=== PATIENT | female | born 1995 | race Caucasian/White ===

== ENCOUNTER 2022-12-18 22:17 | Emergency (ER) | payer OTHER ==
[~2022-12-18] VITALS: Ht 165.1 cm; Wt 59.0 kg
[2022-12-18 22:53] VITALS: BP_SYST 142; PULSE 81; RESP 18; TEMP 97.8; O2SAT 98
[2022-12-19] MEDS ORDERED: BACITRACIN 1 GM OINT TP ONE ×2 (00:42→00:45)
[2022-12-19] MEDS ORDERED: ACET-2634 PO (00:43)
[2022-12-19 00:56] VITALS: BP_SYST 120; PULSE 67; RESP 16; TEMP 98; O2SAT 100
== END 2022-12-19 00:56 | disposition home or self-care (01) ==
LOC: SED 22:17
DX: S61.301A Unspecified open wound of left index finger with damage to nail, initial encounter (principal); Z79.899 Other long term (current) drug therapy; W23.0XXA Caught, crushed, jammed, or pinched between moving objects, initial encounter; Y93.89 Activity, other specified; Y92.89 Other specified places as the place of occurrence of the external cause; Y99.8 Other external cause status
CPT/HCPCS: 73140-TC; 99284